=== PATIENT | female | born 1950 | race Caucasian/White ===

== ENCOUNTER 2017-02-25 11:10 | Emergency (ER) | payer MEDICARE, BC ==
[~2017-02-25] VITALS: Wt 81.8 kg
[2017-02-25] MEDS ORDERED: KETOROLAC 30 MG INJ IM STA (12:50)
[2017-02-25] MEDS ORDERED: ACYC800T57 PO (12:53)
[2017-02-25] MEDS ORDERED: NAPR-688 PO (12:53)
[2017-02-25] MEDS ORDERED: PRED20TA PO (12:53)
[2017-02-25] MEDS ORDERED: GABA300C PO (12:53)
[2017-02-25] MEDS ORDERED: ALPR0.25 PO (12:53)
[2017-02-25] MEDS ORDERED: HYDR-906 PO (12:53)
--- NOTE | 2017-02-25 12:56 | ERD ---
ER Documentation Chief Complaint Date/Time DATE: 02/25/17 TIME: 12:54 Chief Complaint back pain, pt. states "shingles", denies rash/blisters HPI This 66-year-old female presents with skin pain described as a sharp burning sensation in the like distribution on her left back. This is the same area that she previously had shingles long ago it feels the same way. Pain does not cross the midline. It is worse at night but is constant. It is not made worse by anything in particular. ROS All systems reviewed and are negative except as per history of present illness. Medications Home Meds Active Scripts Alprazolam* (Xanax*) 0.25 Mg Tablet, 0.25 MG PO Q8H Y for ANXIETY, #12 TAB Prov:JASMINJANETH DO 02/25/17 Gabapentin* (Neurontin*) 300 Mg Capsule, 300 MG PO BID, #40 CAP Prov:JANETH CASTELLANOS DO 02/25/17 Naproxen* (Naproxen*) 500 Mg Tablet, 500 MG PO BID Y for PAIN, #20 TAB Prov:JANETH CASTELLANOS DO 02/25/17 Hydrocodone/Acetaminophen (Wagoner 5-325 Tablet) 1 Each Tablet, 1 EACH PO Q6, #20 TAB Prov:JANETH CASTELLANOS DO 02/25/17 Prednisone* (Prednisone*) 20 Mg Tab, 40 MG PO DAILY for 4 Days, TAB Prov:JASMINJANETH DO 02/25/17 Acyclovir* (Zovirax*) 800 Mg Tablet, 800 MG PO 5 TIMES DAILY for 7 Days, TAB Prov:JANETH CASTELLANOS DO 02/25/17 Allergies Allergies: Coded Allergies: Sulfa (Sulfonamide Antibiotics) (Verified Allergy, Intermediate, 02/25/17) PMhx/Soc History of Surgery: No Anesthesia Reaction: No Hx Neurological Disorder: No Hx Respiratory Disorders: No Hx Cardiac Disorders: No Hx Psychiatric Problems: No Hx Miscellaneous Medical Probl: Yes (hypothyroidsism, shingles.) Hx Alcohol Use: Yes Hx Substance Use: No Hx Tobacco Use: No Smoking Status: Current every day smoker Physical Exam Vitals Vital Signs Date Time Temp Pulse Resp B/P Pulse Ox O2 Delivery O2 Flow Rate FiO2 02/25/17 11:12 97.1 78 20 148/69 96 Physical Exam Const: [] No distress Head: Atraumatic Eyes: Normal Conjunctiva ENT: Normal External Ears, Nose and Mouth. Neck: Full range of motion..~ No meningismus. Resp: Clear to auscultation bilaterally Cardio: Regular rate and rhythm, no murmurs Abd: Soft, non tender, non distended. Normal bowel sounds Skin: No petechiae or rashes Back: No midline or flank tenderness, no muscle spasm. Skin is normal in appearance. Patient indicates the area of the pain is approximately a 3 inch section beginning at the midline and extending laterally to the flank about the level of T12-L2. Ext: No cyanosis, or edema Neur: Awake and alert and oriented 3, no focal deficits Psych: Normal Mood and Affect Results 24 hrs Current Medications Medications (Trade) Dose Ordered Sig/Rishabh Route PRN Reason Start Time Stop Time Status Last Admin Dose Admin Ketorolac Tromethamine (Toradol) 30 mg ONCE STAT IM 02/25/17 12:50 02/25/17 12:51 DC Procedures/MDM Shingles without rash. Dermatomal distribution does not cross the midline. Patient was given a Toradol shot in the emergency room. I am going to give her a few options for pain control in addition to the acyclovir and 4 day burst of prednisone. Going to give Wagoner, naproxen, Neurontin. States that she also gets very anxious because of the constant distraction and pain of the rash. We did prescribe her a few Xanax pills as well. Primary care follow-up in 2-3 days. Departure Diagnosis: Primary Impression: Shingles Condition: Stable Patient Instructions: Shingles (Herpes Zoster) Additional Instructions: Call your primary care doctor TOMORROW for an appointment during the next 2-3 days.See the doctor sooner or return here if your condition worsens before your appointment time. JANETH CASTELLANOS DO Feb 25, 2017 12:56
[2017-02-25 13:34] VITALS: BP 167/72; PULSE 69; RESP 20; TEMP 97.8
== END 2017-02-25 13:34 | disposition home or self-care (01) ==
LOC: FTE 11:10
DX: B02.9 Zoster without complications (principal); E03.9 Hypothyroidism, unspecified; F17.210 Nicotine dependence, cigarettes, uncomplicated
CPT/HCPCS: 96372; 99284; J1885